=== PATIENT | male | born 1960 | race Caucasian/White ===

== ENCOUNTER → 2018-04-02 | Outpatient (CLI) | payer OTHER ==
[~2018-04-02] MED LIST: NOHOMEMEDICATIONS; VICODIN 5-5001 EACH PO
== END ==
LOC: M.CT 13:59
DX: Z13.6 Encounter for screening for cardiovascular disorders (principal)

== ENCOUNTER → 2018-12-16 | Outpatient (CLI) | payer OTHER ==
[2018-12-16] VITALS (14 sets, daily range): BP systolic 115–153; BP diastolic 58–86
[~2018-12-16] MED LIST changes: +UNICOMPLEX M TA1 TA1 PO
== END | disposition home or self-care (01) ==
LOC: M.CL 09:04
DX: R55 Syncope and collapse (principal); G43.909 Migraine, unspecified, not intractable, without status migrainosus; Z82.0 Family history of epilepsy and other diseases of the nervous system; Z80.42 Family history of malignant neoplasm of prostate; Z80.3 Family history of malignant neoplasm of breast